=== PATIENT | female | born 1980 | race Asian ===

== ENCOUNTER 2017-07-20 06:52 | Emergency (ER) | payer SELFPAY ==
[~2017-07-20] VITALS: Ht 165.1 cm; Wt 47.6 kg
[2017-07-20 07:05] VITALS: BP 114/69
[2017-07-20] MEDS ORDERED: cefTRIAXone 2 GM in NS 110 ML IV SCH (07:15)
--- NOTE | 2017-07-20 07:21 | Emergency Room Report ---
History of Present Illness General Chief Complaint: General Complaint Source: Patient Present Illness HPI Patient 36-year-old female presented after increased chills and dysuria. The patient gradual onset of symptoms of the past 6 days. Patient noted have increased fever up to 103. She denied any severe headache. She denied any neck stiffness. She has not been vomiting. She reported having some increased urinary frequency.She denies chest pain or cough Allergies: Coded Allergies: No Known Allergies (Unverified , 07/20/17) Patient History Past Medical History: see triage record Last Menstrual Period: on her period Reviewed Nursing Documentation: PMH: Agreed, PSxH: Agreed Nursing Documentation-PM Past Medical History: No Stated History Review of Systems All Other Systems: negative except mentioned in HPI Physical Exam Vital Signs Date Time Temp Pulse Resp B/P (MAP) Pulse Ox O2 Delivery O2 Flow Rate FiO2 07/20/17 06:41 102.4 121 18 114/69 98 102.4 Sp02 EP Interpretation: reviewed, normal General Appearance: normal inspection, well appearing, no apparent distress, alert, GCS 15 Head: atraumatic ENT: normal ENT inspection, hearing grossly normal, normal voice Neck: normal inspection, full range of motion, supple, no bony tend Respiratory: normal inspection, lungs clear, normal breath sounds, no respiratory distress, no retraction, no wheezing Cardiovascular #1: regular rate, rhythm, no edema Gastrointestinal: normal inspection, normal bowel sounds, non tender, soft, no guarding, no hernia Genitourinary: no CVA tenderness Musculoskeletal: normal inspection, back normal, normal range of motion Neurologic: normal inspection, alert, oriented x3, responsive, digital x ray service engineer III-XII nml as tested, motor strength/tone normal, speech normal Psychiatric: normal inspection, judgement/insight normal, mood/affect normal Skin: normal inspection, normal color, no rash Medical Decision Making Diagnostic Impression: Primary Impression: Pyelonephritis ER Course Patient presented for fever. Differential diagnosis included wasn't limited to pneumonia, urinary tract infection, drug fever, allergic reaction, sepsis, cholecystitis, among others.Because of complexity of patient's case laboratory testing and imaging studies were ordered.The laboratory testing was notable for evidence of urinary infection. Patient was given IV fluids as well as IV antibiotics. Lactic acid level was noted be normal. The patient was noted to have improvement. The patient stated that she felt better want to go home. She is given prescription for Keflex. The patient is advised to return if she began having increased dizziness, persistent vomiting or other concerns. The patient is advised to recheck her urine and next one to 2 days Labs Test 07/20/17 07:44 White Blood Count 11.8 K/UL (4.8-10.8) Red Blood Count 4.41 M/UL (4.20-5.40) Hemoglobin 13.7 G/DL (12.0-16.0) Hematocrit 41.7 % (37.0-47.0) Mean Corpuscular Volume 95 FL (80-99) Mean Corpuscular Hemoglobin 31.0 PG (27.0-31.0) Mean Corpuscular Hemoglobin Concent 32.8 G/DL (32.0-36.0) Red Cell Distribution Width 11.4 % (11.6-14.8) Platelet Count 163 K/UL (150-450) Mean Platelet Volume 7.4 FL (6.5-10.1) Neutrophils (%) (Auto) % (45.0-75.0) Lymphocytes (%) (Auto) % (20.0-45.0) Monocytes (%) (Auto) % (1.0-10.0) Eosinophils (%) (Auto) % (0.0-3.0) Basophils (%) (Auto) % (0.0-2.0) Differential Total Cells Counted 100 Neutrophils % (Manual) 92 % (45-75) Lymphocytes % (Manual) 4 % (20-45) Monocytes % (Manual) 1 % (1-10) Eosinophils % (Manual) 3 % (0-3) Basophils % (Manual) 0 % (0-2) Band Neutrophils 0 % (0-8) Platelet Estimate Adequate Platelet Morphology Normal Red Blood Cell Morphology Normal Urine Color Pale yellow Urine Appearance Slightly cloudy Urine pH 6 (4.5-8.0) Urine Specific [place] 1.015 (1.005-1.035) Urine Protein 3+ (NEGATIVE) Urine Glucose (UA) Negative (NEGATIVE) Urine Ketones Negative (NEGATIVE) Urine Occult Blood 4+ (NEGATIVE) Urine Nitrite Positive (NEGATIVE) Urine Bilirubin Negative (NEGATIVE) Urine Urobilinogen Normal MG/DL (0.0-1.0) Urine Leukocyte Esterase 3+ (NEGATIVE) Urine RBC 2-4 /HPF (0 - 2) Urine WBC 40-60 /HPF (0 - 2) Urine Squamous Epithelial Cells Few /LPF (NONE/OCC) Urine Bacteria Moderate /HPF (NONE) Sodium Level 137 MMOL/L (136-145) Potassium Level 3.7 MMOL/L (3.5-5.1) Chloride Level 102 MMOL/L (98-107) Carbon Dioxide Level 26 MMOL/L (21-32) Anion Gap 9 mmol/L (5-15) Blood Urea Nitrogen 12 mg/dL (7-18) Creatinine 0.8 MG/DL (0.55-1.30) Estimat Glomerular Filtration Rate > 60 mL/min (>60) Glucose Level 96 MG/DL (74-106) Lactic Acid Level 1.80 mmol/L (0.66-2.22) Calcium Level 8.8 MG/DL (8.5-10.1) Total Bilirubin 0.6 MG/DL (0.2-1.0) Aspartate Amino Transf (AST/SGOT) 29 U/L (15-37) Alanine Aminotransferase (ALT/SGPT) 31 U/L (12-78) Alkaline Phosphatase 48 U/L (46-116) Total Creatine Kinase 101 U/L (26-308) Creatine Kinase MB < 0.5 NG/ML (0.0-3.6) Creatine Kinase MB Relative Index Troponin I 0.002 ng/mL (0.000-0.056) Total Protein 7.1 G/DL (6.4-8.2) Albumin 3.3 G/DL (3.4-5.0) Globulin 3.8 g/dL Albumin/Globulin Ratio 0.9 (1.0-2.7) Last Vital Signs Date Time Temp Pulse Resp B/P (MAP) Pulse Ox O2 Delivery O2 Flow Rate FiO2 07/20/17 07:05 102.4 18 114/69 98 102.4 07/20/17 06:41 121 Status: improved Disposition: HOME, SELF-CARE Condition: Stable Scripts Ibuprofen* (MOTRIN*) 600 Mg Tablet 600 MG ORAL Q8H Y for For Pain, #30 TAB 0 Refills Prov: Juanito Casiano 07/20/17 Cephalexin* (KEFLEX*) 500 Mg Capsule 500 MG ORAL Q6H, #28 CAP 0 Refills Prov: Juanito Casiano 07/20/17 Juanito Casiano Jul 20, 2017 07:21
[2017-07-20] MEDS ORDERED: Acetaminophen 500mg (ES) tab ORAL ONE (07:45)
[2017-07-20 08:06] LABS: APPEARANCE,URINE SLIGHTLY CLOUDY; BILIRUBIN, URINE NEGATIVE (NEGATIVE); COLOR,URINE PALE YELLOW; GLUCOSE, URINE (UA) NEGATIVE (NEGATIVE); KETONES,URINE NEGATIVE (NEGATIVE); LEUKOCYTE ESTERASE ,URINE 3+ (NEGATIVE); NITRITE,URINE POSITIVE (NEGATIVE); PH,URINE 6 (4.5-8.0); PROTEIN,URINE 3+ (NEGATIVE); UROBILINOGEN,URINE NORMAL MG/DL (0.0-1.0)
[2017-07-20 08:07] LABS: HEMATOCRIT 41.7 % (37.0-47.0); HEMOGLOBIN 13.7 G/DL (12.0-16.0); MEAN CORPUSCULAR VOLUME 95 FL (80-99); PLATELET COUNT 163 K/UL (150-450); RED BLOOD COUNT 4.41 M/UL (4.20-5.40); RED CELL DISTRIBUTION WIDTH 11.4 % (11.6-14.8); WHITE BLOOD COUNT 11.8 K/UL (4.8-10.8)
[2017-07-20 09:00] VITALS: BP 110/67
[2017-07-20 09:12] LABS: ANION GAP 9 mmol/L (5-15); BLOOD UREA NITROGEN 12 mg/dL (7-18); CALCIUM 8.8 MG/DL (8.5-10.1); CARBON DIOXIDE 26 MMOL/L (21-32); CHLORIDE 102 MMOL/L (98-107); CREATININE 0.8 MG/DL (0.55-1.30); POTASSIUM 3.7 MMOL/L (3.5-5.1); SODIUM 137 MMOL/L (136-145)
[2017-07-20] MEDS ORDERED: IBUPROFEN600 MG ORAL (09:17)
[2017-07-20] MEDS ORDERED: KEFLEX500 MG ORAL (09:17)
[2017-07-20 09:26] LABS: ALANINE AMINOTRANSFERASE 31 U/L (12-78); ALBUMIN 3.3 G/DL (3.4-5.0); ALBUMIN/GLOBULIN RATIO 0.9 (1.0-2.7); ALKALINE PHOSPHATASE 48 U/L (46-116); ASPARTATE AMINO TRANSFERASE 29 U/L (15-37); BILIRUBIN,TOTAL 0.6 MG/DL (0.2-1.0); CKMB < 0.5 NG/ML (0.0-3.6); CREATINE KINASE 101 U/L (26-308)
[2017-07-20 09:30] VITALS: BP 110/67
--- NOTE | 2017-07-20 09:33 | Diagnostic Imaging Report ---
Indication: Shortness of breath Technique: One view of the chest Comparison: Findings: Lungs and pleural spaces are clear. Heart size is normal Impression: No acute process
--- NOTE | 2017-07-20 14:08 | Cardiology Report ---
APPROVED REPORT EKG Measurement Heart [id number] Sinus tachycardia Otherwise normal ECG
== END 2017-07-20 09:30 | disposition home or self-care (01) ==
LOC: EDBD 06:52 → EMR 08:21
DX: N12 Tubulo-interstitial nephritis, not specified as acute or chronic (principal); R06.02 Shortness of breath
CPT/HCPCS: 36415; 71045; 80053; 81003; 82550; 82553; 83605; 84484; 85007; 85025; 87040; 87086; 87181; 93005; 96374; 96375; 99284; J0696

== ENCOUNTER 2017-07-21 09:13 | Inpatient (IN) | payer SELFPAY ==
[~2017-07-21] VITALS: Ht 162.6 cm; Wt 49.0 kg
[~2017-07-21 09:13] MED LIST: IBUPROFEN600 MG ORAL; KEFLEX500 MG ORAL
[2017-07-21 09:20] VITALS: BP 109/57
[2017-07-21] MEDS ORDERED: cefTRIAXone 1 GM in NS 55 ML IVPB ONE (09:30)
[2017-07-21 09:53] LABS: APPEARANCE,URINE CLEAR; BILIRUBIN, URINE NEGATIVE (NEGATIVE); COLOR,URINE PALE YELLOW; GLUCOSE, URINE (UA) NEGATIVE (NEGATIVE); KETONES,URINE NEGATIVE (NEGATIVE); LEUKOCYTE ESTERASE ,URINE 1+ (NEGATIVE); NITRITE,URINE NEGATIVE (NEGATIVE); PH,URINE 6.5 (4.5-8.0); PROTEIN,URINE NEGATIVE (NEGATIVE); UROBILINOGEN,URINE NORMAL MG/DL (0.0-1.0)
[2017-07-21 09:54] LABS: EOSINOPHILS % (AUTO) 1.6 % (0.0-3.0); HEMATOCRIT 41.9 % (37.0-47.0); HEMOGLOBIN 14.1 G/DL (12.0-16.0); LYMPHOCYTES % (AUTO) 11.4 % (20.0-45.0); MEAN CORPUSCULAR VOLUME 95 FL (80-99); MONOCYTES % (AUTO) 12.9 % (1.0-10.0); NEUTROPHILS % (AUTO) 73.1 % (45.0-75.0); PLATELET COUNT 181 K/UL (150-450); RED BLOOD COUNT 4.43 M/UL (4.20-5.40); RED CELL DISTRIBUTION WIDTH 11.1 % (11.6-14.8); WHITE BLOOD COUNT 9.9 K/UL (4.8-10.8)
[2017-07-21 10:03] LABS: ANION GAP 9 mmol/L (5-15); BLOOD UREA NITROGEN 8 mg/dL (7-18); CALCIUM 9.2 MG/DL (8.5-10.1); CARBON DIOXIDE 28 MMOL/L (21-32); CHLORIDE 101 MMOL/L (98-107); CREATININE 0.7 MG/DL (0.55-1.30); POTASSIUM 3.4 MMOL/L (3.5-5.1); SODIUM 138 MMOL/L (136-145)
[2017-07-21 10:17] LABS: ALANINE AMINOTRANSFERASE 100 U/L (12-78); ALBUMIN 3.6 G/DL (3.4-5.0); ALBUMIN/GLOBULIN RATIO 0.8 (1.0-2.7); ALKALINE PHOSPHATASE 63 U/L (46-116); ASPARTATE AMINO TRANSFERASE 65 U/L (15-37); BILIRUBIN,TOTAL 0.4 MG/DL (0.2-1.0); CKMB < 0.5 NG/ML (0.0-3.6)
--- NOTE | 2017-07-21 10:28 | Diagnostic Imaging Report ---
Indication: Dyspnea Comparison: 07/20/2018 A single view chest radiograph was obtained. Findings: Cardiomediastinal appearance is within normal limits for age. Pulmonary vascularity is appropriate. The diaphragmatic contour is smooth and costophrenic angles are sharp. No pleural effusions are identified. The bones are unremarkable. Impression: No acute findings
--- NOTE | 2017-07-21 11:01 | Emergency Room Report ---
History of Present Illness General Chief Complaint: Abnormal Labs Source: Patient Present Illness HPI 36-year-old female presents ED for evaluation. She was called back because of a positive blood culture. Patient was seen here yesterday or chills, dysuria. Noted pyelonephritis. Subsequently discharged. Patient states that today she is feeling somewhat better but continues to have chills and bodyaches. Afebrile in triage. Denies cough. Denies chest pain or shortness of breath. Feeling nauseous. No other aggravating relieving factors. Denies any other associated symptom Allergies: Coded Allergies: No Known Allergies (Unverified , 07/20/17) Patient History Past Medical History: none Past Surgical History: none Pertinent Family History: none Social History: Denies: smoking, alcohol use, drug use Last Menstrual Period: on period Now: No Immunizations: UTD Reviewed Nursing Documentation: PMH: Agreed, PSxH: Agreed Nursing Documentation-PMH Past Medical History: No Stated History Review of Systems All Other Systems: negative except mentioned in HPI Physical Exam Vital Signs Date Time Temp Pulse Resp B/P (MAP) Pulse Ox O2 Delivery O2 Flow Rate FiO2 07/21/17 09:17 98.0 70 16 106/67 97 Room Air 98.1 Sp02 EP Interpretation: reviewed, normal General Appearance: no apparent distress, alert, GCS 15, non-toxic Head: normocephalic, atraumatic Eyes: bilateral eye normal inspection, bilateral eye PERRL ENT: hearing grossly normal, normal pharynx, no angioedema, normal voice Neck: full range of motion, supple, no meningismus, supple/symm/no masses Respiratory: chest non-tender, lungs clear, normal breath sounds, speaking full sentences Cardiovascular #1: regular rate, rhythm, no edema Cardiovascular #2: 2+ carotid (R), 2+ carotid (L), 2+ radial (R), 2+ radial (L) , 2+ dorsalis pedis (R), 2+ dorsalis pedis (L) Gastrointestinal: normal bowel sounds, non tender, soft, non-distended, no guarding, no rebound Rectal: deferred Genitourinary: normal inspection, CVA tenderness (R), CVA tenderness (L) Musculoskeletal: back normal, gait/station normal, normal range of motion, non- tender Neurologic: alert, oriented x3, responsive, motor strength/tone normal, sensory intact, speech normal Psychiatric: judgement/insight normal, memory normal, mood/affect normal, no suicidal/homicidal ideation Reflexes: 3+ bicep (R), 3+ bicep (L), 3+ tricep (R), 3+ tricep (L), 3+ knee (R) , 3+ knee (L) Skin: normal color, no rash, warm/dry, well hydrated Lymphatic: no adenopathy Medical Decision Making Diagnostic Impression: Primary Impression: Pyelonephritis Additional Impression: Positive blood culture ER Course Hospital Course 36-year-old female presents ED with positive blood cultures. Seen yesterday for pyelonephritis Differential diagnoses include: UTI, cystitis, pyelonephritis, sepsis Clinical course Patient placed on stretcher. After initial history and physical I ordered UA, labs, IV fluids, CXR labs - no leukocytosis noted, hb/hematocrit stable, electrolytes okay, UA grossly positive CXR - no acute process Reviewed EMR from yesterday's visit. Patient did have leukocytosis. And significantly positive Urine findings consistent with pyelonephritis. Given positive blood cultures, persistence of symptoms I do not believe patient is safe for discharge. Given IV antibiotics Case discussed with Dr. Reyna and he agreed to accept the patient to his service for further care and support Diagnosis - pyelonephritis, positive blood cx Admitted to floor in serious condition Labs Test 07/21/17 09:30 White Blood Count 9.9 K/UL (4.8-10.8) Red Blood Count 4.43 M/UL (4.20-5.40) Hemoglobin 14.1 G/DL (12.0-16.0) Hematocrit 41.9 % (37.0-47.0) Mean Corpuscular Volume 95 FL (80-99) Mean Corpuscular Hemoglobin 31.9 PG (27.0-31.0) Mean Corpuscular Hemoglobin Concent 33.7 G/DL (32.0-36.0) Red Cell Distribution Width 11.1 % (11.6-14.8) Platelet Count 181 K/UL (150-450) Mean Platelet Volume 7.7 FL (6.5-10.1) Neutrophils (%) (Auto) 73.1 % (45.0-75.0) Lymphocytes (%) (Auto) 11.4 % (20.0-45.0) Monocytes (%) (Auto) 12.9 % (1.0-10.0) Eosinophils (%) (Auto) 1.6 % (0.0-3.0) Basophils (%) (Auto) 1.0 % (0.0-2.0) Urine Color Pale yellow Urine Appearance Clear Urine pH 6.5 (4.5-8.0) Urine Specific [place] 1.005 (1.005-1.035) Urine Protein Negative (NEGATIVE) Urine Glucose (UA) Negative (NEGATIVE) Urine Ketones Negative (NEGATIVE) Urine Occult Blood 5+ (NEGATIVE) Urine Nitrite Negative (NEGATIVE) Urine Bilirubin Negative (NEGATIVE) Urine Urobilinogen Normal MG/DL (0.0-1.0) Urine Leukocyte Esterase 1+ (NEGATIVE) Urine RBC 2-4 /HPF (0 - 2) Urine WBC 2-4 /HPF (0 - 2) Urine Squamous Epithelial Cells Few /LPF (NONE/OCC) Urine Bacteria Few /HPF (NONE) Urine HCG, Qualitative Negative Sodium Level 138 MMOL/L (136-145) Potassium Level 3.4 MMOL/L (3.5-5.1) Chloride Level 101 MMOL/L (98-107) Carbon Dioxide Level 28 MMOL/L (21-32) Anion Gap 9 mmol/L (5-15) Blood Urea Nitrogen 8 mg/dL (7-18) Creatinine 0.7 MG/DL (0.55-1.30) Estimat Glomerular Filtration Rate > 60 mL/min (>60) Glucose Level 90 MG/DL (74-106) Lactic Acid Level 1.30 mmol/L (0.66-2.22) Calcium Level 9.2 MG/DL (8.5-10.1) Total Bilirubin 0.4 MG/DL (0.2-1.0) Aspartate Amino Transf (AST/SGOT) 65 U/L (15-37) Alanine Aminotransferase (ALT/SGPT) 100 U/L (12-78) Alkaline Phosphatase 63 U/L (46-116) Creatine Kinase MB < 0.5 NG/ML (0.0-3.6) Total Protein 7.9 G/DL (6.4-8.2) Albumin 3.6 G/DL (3.4-5.0) Globulin 4.3 g/dL Albumin/Globulin Ratio 0.8 (1.0-2.7) Chest X-Ray Diagnostic Results Chest X-Ray Diagnostic Results : Chest X-Ray Ordered: Yes # of Views/Limited/Complete: 1 View Indication: Other - cough EP Interpretation: Yes Interpretation: no consolidation, no effusion, no pneumothorax, no acute cardiopulmonary disease Impression: No acute disease Electronically Signed by: Electronically signed by Vernon Arauz MD Last Vital Signs Date Time Temp Pulse Resp B/P (MAP) Pulse Ox O2 Delivery O2 Flow Rate FiO2 07/21/17 09:20 98.2 70 20 109/57 98 Room Air 98.2 Status: improved Disposition: ADMITTED INPATIENT Condition: Serious Referrals: NOT CHOSEN ARCELIA/,REFERRING (PCP) VERNON ARAUZ M.D. Jul 21, 2017 11:01
[2017-07-21 11:09] VITALS: BP 104/61
--- NOTE | 2017-07-21 13:48 | History & Physical ---
History and Physical History & Physicial HP dictated # [id number] TESS PARK Jul 21, 2017 13:48
[2017-07-21] MEDS ORDERED: Piperacillin/Tazobactam 2.25 GM in D5W 55 ML IVPB SCH (14:00)
[2017-07-21] MEDS: Zosyn 3.375gm q8h **Extended infusion IVPB SCH ×4 (15:05→22:41)
[2017-07-21 16:00] VITALS: BP 112/67
--- NOTE | 2017-07-21 16:30 | History and Physical Report ---
DATE OF ADMISSION: 07/21/2017 CHIEF COMPLAINT: The patient has dysuria, fevers, and chills. HISTORY OF PRESENT ILLNESS: This is a 36-year-old Persian female, who started having dysuria about six days ago. She had also fevers. She did not pay much attention and thought may be it is from her periods. Until yesterday when she presented to the emergency room because the symptoms continued, she received some IV antibiotics and sent home with p.o. Keflex. She took a dose of Keflex this morning. Her urine culture showed more than 100,000 gram-negative rods. Also, the blood culture came back also as positive and the patient was called to come back to the emergency room. She was admitted for diagnosis of gram-negative septicemia. PAST MEDICAL HISTORY: The patient had urinary tract infections before, but she was never treated. She denies history of diabetes or hypertension. MEDICATIONS: The patient was supposed to take ibuprofen and Keflex at home. ALLERGIES: No known drug allergies. SOCIAL HISTORY: No history of smoking. The patient drinks occasionally. REVIEW OF SYSTEMS: Noncontributory except above. PHYSICAL EXAMINATION: GENERAL: The patient is a 36-year-old female, in no acute distress. VITAL SIGNS: Blood pressure is 106/67, pulse 70, respiratory rate is 16, and temperature 98 degrees. HEENT: [place] conjunctivae. Anicteric sclerae. NECK: Supple. LUNGS: Clear to auscultation. HEART: S1, S2 without murmurs or rubs. ABDOMEN: Soft. Mild tenderness in suprapubic area. LABORATORY AND DIAGNOSTIC DATA: CBC shows WBC of 9.9, hematocrit is 41.9, hemoglobin is 14.1, and platelets 181,000. Chemistry panel shows serum sodium 138, potassium 3.4, chloride 101, BUN 8, creatinine 0.7, and calcium is 9.2. UA as of today showed 2 to 4 RBCs and 2 to 4 WBCs per high-power field. ASSESSMENT: This is a 36-year-old female, who is admitted with gram-negative bacteremia as a result of urinary tract infection. Interestingly, her UA does not have many WBCs. It looks like she responded to the antibiotic yesterday and possibly to the Keflex she took today because her symptoms has improved from yesterday to today. PLAN: The patient will be on IV Zosyn. I will await the final culture results. She will be on Tylenol p.r.n. for any fevers and hopefully, when we get the results of blood cultures back, we will switch to oral antibiotics and discharge the patient. Colton Reyna M.D. DR: Omar JOB#: [id number] CC:
[2017-07-21 20:00] VITALS: BP 104/71
[2017-07-21] MEDS ORDERED: Milk of Magnesia 30ml Ud ORAL PRN (21:00)
[2017-07-22] VITALS: BP 125/61
[2017-07-22 04:00] VITALS: BP 101/72
[2017-07-22] MEDS: Zosyn 3.375gm q8h **Extended infusion IVPB SCH ×2 (05:39)
[2017-07-22 08:00] VITALS: BP 117/61
[2017-07-22 09:02] VITALS: BP 117/61
--- NOTE | 2017-07-22 09:02 | History & Physical ---
History and Physical History & Physicial HP dictated # [id number] TESS PARK Jul 22, 2017 09:02
[2017-07-22] MEDS ORDERED: CIPRO500 MG/51 PO (10:04)
[2017-07-22] MEDS ORDERED: Tubing IV Secondary IV ONE (10:08)
[2017-07-22] MEDS ORDERED: NS 500ML ONE (10:08)
--- NOTE | 2017-07-22 10:08 | Consultation ---
Consult Note Assessment/Plan Dc dictated # [id number] TESS PARK Jul 22, 2017 10:08
--- NOTE | 2017-07-22 17:02 | Discharge Summary ---
DATE OF ADMISSION: 07/21/2017 DATE OF DISCHARGE: 07/22/2017 CHIEF COMPLAINT: The patient had dysuria and fevers at home. HISTORY OF PRESENT ILLNESS: This is a 36-year-old Sami female, who came to the emergency room on 07/20/2017 with symptoms of dysuria, urgency, and frequency, also fevers. The patient was diagnosed with urinary tract infection and was started on Keflex and was sent home, but also blood cultures were done. Blood cultures came out as positive for gram-negative rods and the patient was asked to come back to the emergency room and she was admitted with diagnosis of gram-negative septicemia. HOSPITAL COURSE: The patient was started on IV Zosyn. She remained stable. Dysuria had already improved before admission with IV antibiotics she received in the emergency room the previous day as well as the Keflex. She continued to improve and on 07/22/2017, she wanted to go home, but still did not have any final sensitivity results on the Gram negatives. However, it was felt that it was safe to put the patient on oral medications and discharged her and this was done. The patient was started on Cipro 500 mg b.i.d. to be taken another 10 days. She was advised to call in to get the final results for her blood culture. DISCHARGE DIAGNOSES: 1. Gram-negative septicemia. 2. Urinary tract infection. DISCHARGE MEDICATIONS: Cipro 500 mg b.i.d. p.o. The patient was also advised to take ibuprofen or Tylenol p.r.n. for any pain. Colton Reyna M.D. DR: Gildardo JOB#: [id number] CC:
== END 2017-07-22 11:38 | disposition home or self-care (01) | DRG 872 ==
LOC: EMR 09:25 → EDBEDREQ 09:46 → 3E 10:06 → EDBEDREQ 11:12
DX: A41.50 Gram-negative sepsis, unspecified (principal); N39.0 Urinary tract infection, site not specified; B96.89 Other specified bacterial agents as the cause of diseases classified elsewhere
CPT/HCPCS: 36415; 71045; 80053; 81003; 81025; 82553; 83605; 85025; 87040; 99285